=== PATIENT | male | born 1950 | race Two or more races ===

== ENCOUNTER 2021-10-23 06:56 | Inpatient (IN) | payer OTHER ==
[~2021-10-23] VITALS: Ht 175.3 cm; Wt 107.3 kg
[2021-10-23] VITALS (11 sets, daily range): BP systolic 106–136; BP diastolic 56–75
[~2021-10-23 06:56] MED LIST: ATEN50TA PO; ATO40T PO; CLOP75TA28 PO; GABA300C10 PO; INSU1.2I SC; ISOS20TA49 PO; LATA0.0019 RIGHTEYE; LOSA-69 PO; METF-929 PO; NITR0.4S29 SL; RANO500T2 PO
[2021-10-23] MEDS ORDERED: MORPHINE SULFATE INJECTION 2 MG/ML SYRG IV PRN ×2 (08:30→20:15)
[2021-10-23] MEDS ORDERED: NITROGLYCERIN 0.4 MG SL TAB SL PRN (08:30)
[2021-10-23] MEDS ORDERED: NITROGLYCERIN 0.4 MG SL TAB SL SCH (08:30)
[2021-10-23] MEDS ORDERED: DEXTROSE (50%) 50ML SYRG IV PRN (08:45)
[2021-10-23 09:51] LABS: INR 1.2 (0.9-1.15); Partial Thromboplastin Time 26.8 sec (23.6-33.0)
[2021-10-23 09:56] LABS: BUN/Creatinine Ratio 19.3; Calcium 8.1 mg/dL (8.5-10.1); Potassium 5.3 mmol/L (3.5-5.1)
[2021-10-23 09:58] LABS: Basophils # (auto) 0 10 ^3/uL (0-0.2); Eosinophils # (auto) 0.1 10 ^3/uL (0-0.8); Monocytes # (auto) 0.5 10 ^3/uL (0-1.3); Neutrophils # (auto) 3.7 10 ^3/uL (1.6-8.6); Nucleated Red Blood Cells % 0.1 %
[2021-10-23] MEDS ORDERED: CLOPIDOGREL BISULFATE 75 MG TAB PO SCH (10:00)
[2021-10-23] MEDS ORDERED: ISOSORBIDE MONONITRATE 20 MG TAB PO SCH (10:00)
[2021-10-23] MEDS ORDERED: INSULIN GLARGINE SC SCH (10:00)
[2021-10-23] MEDS ORDERED: ATENOLOL 50 MG TAB PO SCH (10:00)
[2021-10-23] MEDS ORDERED: RANOLAZINE ER 500 MG TAB PO SCH (10:00)
[2021-10-23] MEDS ORDERED: LOSARTAN POTASSIUM 50 MG TAB PO SCH (10:00)
[2021-10-23] MEDS ORDERED: PANTOPRAZOLE 40 MG/10 ML VIAL INJ IV SCH (10:00)
[2021-10-23 10:01] LABS: Basophils % (auto) 0.4 % (0.0-2.0); Eosinophils % (auto) 1.2 % (0.0-7.0); Hematocrit 17.6 % (41.0-53.0); Lymphocytes % (auto) 19.3 % (10.0-50.0); Mean Corpuscular Hemoglobin 26.5 pg (28.0-32.0); Mean Corpuscular Hgb Conc. 31.6 g/dL (32.0-36.0); Mean Corpuscular Volume 83.8 fL (80.0-100.0); Monocytes % (auto) 9.2 % (0.0-12.0); Neutrophils % (auto) 69.9 % (37.0-80.0); Red Cell Distribution Width 16.8 % (11.8-14.3); White Blood Cell 5.3 10^3/uL (4.4-10.8)
[2021-10-23 10:14] LABS: Hemoglobin 5.6 g/dL (13.5-17.5)
[2021-10-23] MEDS: ACCU-CHEK COMFORT CURVE STRIP VI SCH ×3 (11:30→22:05)
[2021-10-23] MEDS: InsuLIN REG 1unit/0.01ml Soln (100units/ml) SC SCH ×3 (13:17→22:06)
[2021-10-23] MEDS ORDERED: GABAPENTIN 300 MG CAP PO SCH (14:00)
[2021-10-23] MEDS: SUCRALFATE 1 GM/10 ML ORAL SUSP PO SCH ×2 (17:44→22:05)
[2021-10-23] MEDS ORDERED: metFORMIN HYDROCHLORIDE 500 MG TAB PO SCH (18:00)
[2021-10-23] MEDS: LATANOPROST 0.005 % OPTH(EYE) SOL 2.5ML RIGHTEYE SCH (18:53)
[2021-10-23 19:43] LABS: Hematocrit 22.9 % (41.0-53.0); Hemoglobin 7.3 g/dL (13.5-17.5)
[2021-10-23] MEDS ORDERED: FUROSEMIDE 40 MG/4 ML VIAL IV ONE (20:15)
[2021-10-23] MEDS ORDERED: ONDANSETRON HCL 4 MG/2 ML VIAL IV PRN (20:15)
[2021-10-23] MEDS: ACETAMINOPHEN 500 MG TAB PO PRN (20:38)
[2021-10-23] MEDS ORDERED: ATORVASTATIN 20 MG TAB PO SCH (22:00)
[2021-10-23] MEDS: PANTOPRAZOLE 40 MG/10 ML VIAL INJ IV SCH (22:05)
[2021-10-24] VITALS (7 sets, daily range): BP systolic 99–123; BP diastolic 57–68
[2021-10-24 06:01] LABS: Hematocrit 19.4 % (41.0-53.0)
[2021-10-24 06:14] LABS: Cholesterol 84 mg/dL (< 200); HDL Cholesterol 31 mg/dL (40-59); LDL Cholesterol 40 mg/dL (< 100); Triglycerides 84 mg/dL (< 150)
[2021-10-24 06:28] LABS: Hemoglobin 6.4 g/dL (13.5-17.5)
[2021-10-24] MEDS: InsuLIN REG 1unit/0.01ml Soln (100units/ml) SC SCH ×5 (06:56→22:26)
[2021-10-24] MEDS: ACCU-CHEK COMFORT CURVE STRIP VI SCH ×4 (06:56→22:22)
[2021-10-24] MEDS: SUCRALFATE 1 GM/10 ML ORAL SUSP PO SCH ×4 (06:56→22:22)
[2021-10-24] MEDS: PANTOPRAZOLE 40 MG/10 ML VIAL INJ IV SCH ×2 (09:33→22:22)
[2021-10-24] MEDS ORDERED: FUROSEMIDE 20 MG/2 ML VIAL IV ONE (14:30)
[2021-10-24 15:59] LABS: Hemoglobin 7.5 g/dL (13.5-17.5)
[2021-10-24] MEDS: LATANOPROST 0.005 % OPTH(EYE) SOL 2.5ML RIGHTEYE SCH (17:17)
[2021-10-24] MEDS: ACETAMINOPHEN 500 MG TAB PO PRN (17:18)
[2021-10-24] MEDS ORDERED: LACTULOSE 20Gm/30ML SOLN PO PRN (17:45)
[2021-10-24] MEDS ORDERED: LACTULOSE 20Gm/30ML SOLN PO ONE (17:45)
[2021-10-25] MEDS: SUCRALFATE 1 GM/10 ML ORAL SUSP PO SCH ×4 (06:29→21:54)
[2021-10-25] MEDS: ACCU-CHEK COMFORT CURVE STRIP VI SCH ×4 (06:29→21:51)
[2021-10-25] MEDS: InsuLIN REG 1unit/0.01ml Soln (100units/ml) SC SCH ×5 (06:32→21:56)
[2021-10-25 07:28] LABS: Basophils # (auto) 0 10 ^3/uL (0-0.2); Basophils % (auto) 0.6 % (0.0-2.0); Eosinophils # (auto) 0.2 10 ^3/uL (0-0.8); Eosinophils % (auto) 2.6 % (0.0-7.0); Hematocrit 22.9 % (41.0-53.0); Hemoglobin 7.5 g/dL (13.5-17.5); Lymphocytes # (auto) 1.3 10 ^3/uL (0.4-5.4); Lymphocytes % (auto) 20.2 % (10.0-50.0); Mean Corpuscular Hemoglobin 27.5 pg (28.0-32.0); Mean Corpuscular Hgb Conc. 32.7 g/dL (32.0-36.0); Monocytes # (auto) 0.7 10 ^3/uL (0-1.3); Monocytes % (auto) 11.1 % (0.0-12.0); Neutrophils # (auto) 4.2 10 ^3/uL (1.6-8.6); Neutrophils % (auto) 65.5 % (37.0-80.0); Red Blood Cells 2.73 10^6/uL (4.5-5.90); Red Cell Distribution Width 16.6 % (11.8-14.3); White Blood Cell 6.4 10^3/uL (4.4-10.8)
[2021-10-25 07:41] LABS: Calcium 8.3 mg/dL (8.5-10.1); INR 1.2 (0.9-1.15); Partial Thromboplastin Time 27.5 sec (23.6-33.0); Potassium 4.4 mmol/L (3.5-5.1)
[2021-10-25 07:45] LABS: BUN/Creatinine Ratio 17.7
[2021-10-25 09:00] VITALS: BP 124/63
[2021-10-25] MEDS: PANTOPRAZOLE 40 MG/10 ML VIAL INJ IV SCH ×2 (09:04→21:55)
[2021-10-25] MEDS ORDERED: IRON SUCROSE COMPLEX 200 MG in SODIUM CHL 0.9% 100 ML IV SCH (12:00)
[2021-10-25 13:04] VITALS: BP 128/70
[2021-10-25] MEDS: SODIUM FERR GLUC 125 MG in NS 100 ML IV SCH (14:05)
[2021-10-25 17:15] VITALS: BP 139/67
[2021-10-25] MEDS: LATANOPROST 0.005 % OPTH(EYE) SOL 2.5ML RIGHTEYE SCH (17:33)
[2021-10-25] MEDS: ACETAMINOPHEN 500 MG TAB PO PRN (21:59)
[2021-10-25 22:00] VITALS: BP 113/54
[2021-10-26 05:46] VITALS: BP 116/63
[2021-10-26] MEDS: ACCU-CHEK COMFORT CURVE STRIP VI SCH ×2 (06:10→11:57)
[2021-10-26] MEDS: InsuLIN REG 1unit/0.01ml Soln (100units/ml) SC SCH ×2 (06:19→11:59)
[2021-10-26] MEDS: SUCRALFATE 1 GM/10 ML ORAL SUSP PO SCH ×2 (06:21→11:58)
[2021-10-26 09:00] VITALS: BP 119/63
[2021-10-26] MEDS: PANTOPRAZOLE 40 MG/10 ML VIAL INJ IV SCH (09:19)
[2021-10-26 09:41] LABS: Hemoglobin 7.8 g/dL (13.5-17.5)
[2021-10-26 09:43] LABS: Hematocrit 24.5 % (41.0-53.0)
[2021-10-26 09:59] LABS: INR 1.13 (0.9-1.15); Partial Thromboplastin Time 28.7 sec (23.6-33.0)
[2021-10-26] MEDS: SODIUM FERR GLUC 125 MG in NS 100 ML IV SCH (12:11)
[2021-10-26 13:00] VITALS: BP 147/75
[2021-10-26] MEDS ORDERED: FER325T PO (13:58)
[2021-10-26] MEDS ORDERED: PANT40T PO (14:38)
[2021-10-26] MEDS ORDERED: SUCR1SUS5 PO (14:38)
[2021-10-26 15:23] VITALS: BP 119/63
== END 2021-10-26 16:55 | disposition home or self-care (01) | DRG 812 ==
LOC: CATH 06:56 → TELE 08:19 → TELE-CENTR 17:22
PROVIDERS: ADMIT Internal Medicine; ATTEND Hospitalist
PROC: 30233N1 Transfusion of Nonautologous Red Blood Cells into Peripheral Vein, Percutaneous Approach (ICD-10-PCS; principal; 2021-10-23)
DX: D64.9 Anemia, unspecified (principal); I13.0 Hypertensive heart and chronic kidney disease with heart failure and stage 1 through stage 4 chronic kidney disease, or unspecified chronic kidney disease; I50.9 Heart failure, unspecified; I25.10 Atherosclerotic heart disease of native coronary artery without angina pectoris; E78.5 Hyperlipidemia, unspecified; E66.9 Obesity, unspecified; N18.9 Chronic kidney disease, unspecified; K27.9 Peptic ulcer, site unspecified, unspecified as acute or chronic, without hemorrhage or perforation; Z79.899 Other long term (current) drug therapy; Z82.49 Family history of ischemic heart disease and other diseases of the circulatory system; Z95.1 Presence of aortocoronary bypass graft; Z68.34 Body mass index [BMI] 34.0-34.9, adult; Z88.0 Allergy status to penicillin
CPT/HCPCS: 36415; 80048; 80061; 82270; 82962; 83036; 85014; 85018; 85025; 85610; 85730; 86850; 86900; 86901; 86920; C9113; G0378; J1815